=== PATIENT | male | born 1960 | race Caucasian/White ===

== ENCOUNTER 2019-02-17 21:51 | Emergency (ER) | payer OTHER ==
[~2019-02-17] VITALS: Ht 177.8 cm; Wt 87.1 kg
[~2019-02-17 21:51] MED LIST: COZAAR100 MG; HYDROCHLOROTHIA25 MG; NEXIUM40 MG/PACK; NORVASC10 MG; PROVENTIL17 G1; WELLBUTRIN XL300 MG
[2019-02-17] MEDS ORDERED: ZANTAC300 MG (22:19)
[2019-02-17] MEDS ORDERED: CLONAZEPAM2 M1 (22:19)
[2019-02-17] MEDS ORDERED: SLEEP AID25 M2 (22:19)
[2019-02-17] MEDS ORDERED: ASPIR 8181 MG (22:20)
== END 2019-02-18 02:55 | disposition home or self-care (01) ==
LOC: ER 21:51
DX: I16.0 Hypertensive urgency (principal); I10 Essential (primary) hypertension

== ENCOUNTER 2022-02-16 11:40 | Outpatient (CLI) | payer OTHER ==
[~2022-02-16 11:40] MED LIST changes: +ASPIR 8181 MG; +CLONAZEPAM2 M1; +SLEEP AID25 M2; +ZANTAC300 MG
== END 2022-02-16 11:42 | disposition home or self-care (01) ==
LOC: LAB 11:40
DX: R00.2 Palpitations (principal); I11.9 Hypertensive heart disease without heart failure; E11.9 Type 2 diabetes mellitus without complications; E78.2 Mixed hyperlipidemia; Z79.01 Long term (current) use of anticoagulants; R06.00 Dyspnea, unspecified